=== PATIENT | male | born 1965 | race Caucasian/White ===

== ENCOUNTER 2019-03-30 12:25 | Emergency (ER) | payer MEDICAID, OTHER | END 2019-03-30 13:13 | disposition home or self-care (01) | LOC: E/R 13:13 | DX: I10 Essential (primary) hypertension (principal); E11.69 Type 2 diabetes mellitus with other specified complication; M10.9 Gout, unspecified; Z79.4 Long term (current) use of insulin | CPT/HCPCS: 99281; Z7502 ==